=== PATIENT | male | born 1985 | race Caucasian/White ===

== ENCOUNTER → 2021-06-29 | Outpatient (CLI) | payer SELFPAY | LOC: COL.RAD 14:52 | DX: K76.0 Fatty (change of) liver, not elsewhere classified (principal); N20.0 Calculus of kidney; C62.11 Malignant neoplasm of descended right testis | CPT/HCPCS: Q9967 ==

== ENCOUNTER → 2022-04-05 | Outpatient (CLI) | payer SELFPAY | LOC: COL.RAD 14:24 | DX: C62.11 Malignant neoplasm of descended right testis (principal) | CPT/HCPCS: Q9967 ==

== ENCOUNTER → 2024-01-08 | Outpatient (CLI) | payer SELFPAY ==
[~2024-01-08] MED LIST: CIALIS2.5 MG PO
== END ==
LOC: COL.RAD 07:51
DX: I34.0 Nonrheumatic mitral (valve) insufficiency (principal); I31.39 Other pericardial effusion (noninflammatory)